=== PATIENT | male | born 1960 | race Caucasian/White ===

== ENCOUNTER 2021-05-14 09:43 | Day surgery (SDC) | payer BC ==
[2021-05-14] MEDS ORDERED: Lactated Ringers 1,000 ML IV SCH (10:00)
--- NOTE | 2021-05-14 10:48 | PCM.PREANE ---
Preanesthetic Assessment - Anesthesia/Transfusion/Family Hx Anesthesia History: Prior Anesthesia Without Reaction Other Type of Anesthesia Reaction Comment: no prior general anesthesia Transfusion History: No Prior Transfusion(s) - Review of Systems General: No Symptoms Pulmonary: No Symptoms Cardiovascular: No Symptoms Gastrointestinal: No Symptoms Neurological: No Symptoms Other: Reports: None - Physical Assessment NPO Status Date: 05/14/21 NPO Status Time: 00:00 Vital Signs: Last Vital Signs Temp Pulse 66 05/14/21 10:04 Resp 15 05/14/21 10:04 BP 140/83 05/14/21 10:04 Pulse Ox 97 05/14/21 10:04 Height: 6 ft Weight: 231 lb ASA Class: 2 Mental Status: Alert & Oriented x3 Airway Class: Mallampati = 2 Dentition: Reports: Normal Dentition Thyro-Mental Finger Breadths: 3 Mouth Opening Finger Breadths: 3 ROM/Head Extension: Full Lungs: Clear to Auscultation, Normal Respiratory Effort Cardiovascular: Regular Rate, Regular Rhythm - Allergies Allergies/Adverse Reactions: Allergies Allergy/AdvReac Type Severity Reaction Status Date / Time No Known Allergies Allergy Verified 05/08/21 10:50 - Acknowledgements Anesthesia Type Planned: General Anesthesia Pt an Appropriate Candidate for the Planned Anesthesia: Yes Alternatives and Risks of Anesthesia Discussed w Pt/Guardian: Yes Pt/Guardian Understands and Agrees with Anesthesia Plan: Yes PreAnesthesia Questionnaire HEENT History: Reports: Other (See Below) Other HEENT History: wears glasses Cardiovascular History: Reports: High Cholesterol, Hypertension Respiratory History: Reports: None Gastrointestinal History: Reports: None Genitourinary History: Reports: None Musculoskeletal History: Reports: Back Pain, Chronic, Fracture Other Musculoskeletal History: degenerative disc disease, hx of fx right arm and left wrist Neurological History: Reports: Other (See Below) Other Neuro History: hx of motion sickness Psychiatric History: Reports: None Endocrine/Metabolic History: Reports: Obesity/BMI 30+ Hematologic History: Reports: None Immunologic History: Reports: None Oncologic (Cancer) History: Reports: None - Past Surgical History Head Surgeries/Procedures: Reports: None HEENT Surgical History: Reports: None Cardiovascular Surgical History: Reports: None Respiratory Surgical History: Reports: None GI Surgical History: Reports: None Male Surgical History: Reports: None Neurological Surgical History: Reports: None Musculoskeletal Surgical History: Reports: Other (See Below) Other Musculoskeletal Surgeries/Procedures:: hx of repair to hand (trauma) under shirin block Oncologic Surgical History: Reports: None - SUBSTANCE USE Tobacco Use Status *Q: Former Tobacco User Tobacco Use Within Last Twelve Months: No Recreational Drug Use History: No - HOME MEDS Home Medications: Home Meds Gabapentin [Neurontin] 300 mg PO BEDTIME 05/08/21 [History] Ibuprofen 800 mg PO Q8H PRN 05/08/21 [History] Lisinopril/Hydrochlorothiazide [Zestoretic 10-12.5 mg Tablet] 1 tab PO QAM 05/08/21 [History] Metoprolol Tartrate 50 mg PO QAM 05/08/21 [History] atorvaSTATin Calcium [Atorvastatin Calcium] 10 mg PO DAILY 05/08/21 [History] - CURRENT (IN HOUSE) MEDS Current Meds: Current Medications Lactated Ringer's (Ringers, Lactated) 1,000 mls @ 125 mls/hr IV ASDIRECTED [facility] Last Admin: 05/14/21 10:39 Dose: 125 mls/hr Documented by:
[2021-05-14] MEDS ORDERED: propofoL 50 ML ONE (11:36)
[2021-05-14] MEDS ORDERED: Lidocaine 2% 5 ML SDV ONE (11:36)
[2021-05-14] MEDS ORDERED: Propofol 200 MG/20 ML SDV ONE ×2 (12:03→12:23)
--- NOTE | 2021-05-14 12:37 | PCM.OPNOTE ---
- General Post-Op/Procedure Note Date of Surgery/Procedure: 05/14/21 Operative Procedure(s): Colonoscopy with polypectomy Findings: multiple colon polyps dictation number [id number] Pre Op Diagnosis: Blood when he wipes Post-Op Diagnosis: multiple colon polyps Anesthesia Technique: MAC Primary Surgeon: Garland Rodriguez Pathology: colon polyps Complications: None Condition: Good
--- NOTE | 2021-05-14 12:44 | PCM.POSTAN ---
POST ANESTHESIA ASSESSMENT - MENTAL STATUS Mental Status: Alert, Oriented - VITAL SIGNS Vital Signs: Last Vital Signs Temp Pulse 66 05/14/21 10:04 Resp 15 05/14/21 10:04 BP 140/83 05/14/21 10:04 Pulse Ox 97 05/14/21 10:04 - RESPIRATORY Respiratory Status: Respiratory Rate WNL, Airway Patent, O2 Saturation Stable - CARDIOVASCULAR CV Status: Pulse Rate WNL, Blood Pressure Stable - GASTROINTESTINAL GI Status: No Symptoms - POST OP HYDRATION Hydration Status: Adequate & Stable
--- NOTE | 2021-05-14 12:44 | PCM48HPAN ---
Post Anesthesia Note - EVALUATION WITHIN 48HRS OF ANESTHETIC Vital Signs in Normal Range: Yes Patient Participated in Evaluation: Yes Respiratory Function Stable: Yes Airway Patent: Yes Cardiovascular Function Stable: Yes Hydration Status Stable: Yes Pain Control Satisfactory: Yes Nausea and Vomiting Control Satisfactory: Yes Mental Status Recovered: Yes Vital Signs: Last Vital Signs Temp Pulse 66 05/14/21 10:04 Resp 15 05/14/21 10:04 BP 140/83 05/14/21 10:04 Pulse Ox 97 05/14/21 10:04
--- NOTE | 2021-05-14 19:26 | OR ---
SURGEON: EDWARD BELLAMY MD DATE OF PROCEDURE: 05/14/2021 PREOPERATIVE DIAGNOSIS: Occasional blood when he wipes. POSTOPERATIVE DIAGNOSES: 1. Multiple colon polyps. He had: a. One at 70 cm. b. Another at 40 cm. c. Another at 20 cm. 2. Another in the rectum. PROCEDURES PERFORMED: 1. Colonoscopy. 2. Cold biopsy polypectomies. 3. Hot snare polypectomies. PRIMARY SURGEON: Edward Bellamy MD ANESTHESIA: With Anesthesiology. EXTENT OF THE COLONOSCOPY: To the cecum. BOWEL PREP: Good. LIMITATIONS: None. REASON FOR PROCEDURE: Patient is a pleasant 60-year-old gentleman. He has never had a colonoscopy. Denies any family history of colon cancer. He says occasionally he will get some blood when he wipes. This happens a couple of times a year. He was told in the past it was because of hemorrhoids. PROCEDURE IN DETAIL: Physical examination was performed. The major risks and benefits associated with the procedure were explained to the patient in detail. The patient verbalized understanding and agreement of the same. The patient was then connected to the appropriate monitoring device and IV was started. EKG, pulse, pulse oximetry, blood pressure, and capnography were monitored throughout the entire procedure. Continuous oxygen and sedation were provided by the anesthesiologist. Patient was placed in left lateral decubitus position. Sedation began. After adequate sedation was achieved, a digital rectal exam was performed. No rectal masses or polyps felt. Now, a well-lubricated Olympus colonoscope was inserted into the rectum and advanced under direct visualization to the level of the cecum. The cecum was identified by both visual and anatomic landmarks. The patient had a little bit of loopy colon and required some extra-abdominal pressure, but I did get to the cecum. In the cecum, the patient did have some loose liquid stool. This was suctioned and irrigated out for a good look at the mucosa. Terminal ileum was also intubated. The scope was then slowly withdrawn in circular fashion looking at the color, texture, anatomy, and integrity of the mucosa from the cecum to the anal canal. Again, the patient had some liquid stool mainly in the cecum and kind of a little bit in the ascending colon. This was suctioned out for a great look at the mucosa. The rest of the colon was actually very good. The patient did have a small polyp at about 70 cm. This was removed with cold biopsy polypectomy and appeared to be completely removed with good hemostasis. It looked to be kind of more in the transverse colon. Scope was continued to be withdrawn. The patient had a larger polyp at about 40 cm. This was removed with hot snare polypectomy in two swipes. Again, it appeared to be completely removed and good hemostasis. This appeared to be more in the descending sigmoid colon. Scope was continued to be withdrawn. Patient had another moderate-sized polyp at about 20 cm. Again, this was removed in two swipes with the hot snare. Again, good hemostasis, appeared to be completely removed. Scope was continued to be withdrawn. In the patient's rectum, he had what looked to be multiple small hyperplastic polyps. Several of these were removed with cold biopsy polypectomy, but not all. The scope was retroflexed in the rectum, did have some internal hemorrhoids. Scope was completely removed and procedure was terminated. ENDOSCOPIC DIAGNOSES: 1. Multiple colon polyps: a. One at 70 cm. b. One at 40 cm. c. One at 20 cm. 2. Multiple hyperplastic-looking polyps in the rectum. 3. Internal hemorrhoids. RECOMMENDATIONS: Followup colonoscopy will depend on pathology, but most likely will need another one in three to five years; sooner if he develops sign and symptoms such as change in bowel habits or blood in the stool. MILA IIRZARRY /[id number]
== END 2021-05-14 13:23 | disposition home or self-care (01) ==
LOC: MW.SDS 09:43
PROVIDERS: ATTEND Surgery
DX: D12.3 Benign neoplasm of transverse colon (principal); D12.5 Benign neoplasm of sigmoid colon; K62.1 Rectal polyp; K64.8 Other hemorrhoids; I10 Essential (primary) hypertension; E78.00 Pure hypercholesterolemia, unspecified; E66.9 Obesity, unspecified; Z68.31 Body mass index [BMI] 31.0-31.9, adult; Z87.891 Personal history of nicotine dependence; Z98.890 Other specified postprocedural states; Z79.899 Other long term (current) drug therapy
CPT/HCPCS: 45380; 45385; 88305; J2704; J7120

== ENCOUNTER 2023-09-08 14:50 | Emergency (ER) | payer BC | END 2023-09-08 16:44 | disposition home or self-care (01) | LOC: MW.ED 14:50 | DX: K64.4 Residual hemorrhoidal skin tags (principal); I10 Essential (primary) hypertension; E66.9 Obesity, unspecified; Z68.26 Body mass index [BMI] 26.0-26.9, adult; Z79.899 Other long term (current) drug therapy | CPT/HCPCS: 99283 ==